=== PATIENT | female | born 1965 | race African-American/Black ===

== ENCOUNTER 2020-10-09 15:48 | Outpatient (REF) | payer OTHER, SELFPAY ==
--- NOTE | 2020-10-09 15:54 | XR_ITS ---
EXAMINATION: XR FOREARM, LEFT CLINICAL INFORMATION: Pain in left forearm COMPARISON: None TECHNIQUE: AP and lateral views of the left forearm were obtained. FINDINGS: No fracture or cortical disruption. Appropriate alignment of the wrist and elbow. There may be mild distal soft tissue swelling. No radiopaque foreign body. XR/XR forearm LT 2V IMPRESSION: Mild distal soft tissue swelling. No osseous abnormality.
== END 2020-10-09 15:49 | disposition home or self-care (01) ==
LOC: HO.XRAY 15:48
PROVIDERS: PCP Hospitalist; Visit Provider Hospitalist
DX: M79.632 Pain in left forearm (principal)
CPT/HCPCS: 73090

== ENCOUNTER → 2020-11-10 10:57 | Outpatient (BNVA) | payer OTHER, SELFPAY | PROVIDERS: PCP Hospitalist; Visit Provider Advanced Practice Midwife | DX: Z76.89 Persons encountering health services in other specified circumstances (principal) ==

== ENCOUNTER 2020-11-18 09:12 | Outpatient (REF) | payer OTHER, SELFPAY ==
--- NOTE | 2020-11-18 09:16 | MM_ITS ---
EXAMINATION: BONE DENSITOMETRY CLINICAL INDICATION: Asymptomatic postprocedural ovarian failure. COMPARISON: None (current study represents initial baseline exam). TECHNIQUE: Using a [employer] DXA System (software version: 13.1) manufactured by [employer], dual-energy x-ray absorptiometry was performed of the lumbar spine and left hip. The images are of good technical quality. Summary results are attached. FINDINGS: AP SPINE L1-L4: BMD 1.086 g/cm2, Z-score -1.2, T-score -0.8, normal. LEFT FEMUR, NECK: BMD 0.981 g/cm2, Z-score -0.7, T-score -0.4, normal. LEFT FEMUR, TOTAL: BMD 1.248 g/cm2, Z-score 1.2, T-score 1.9, normal. IDENTIFIED RISK FACTORS: Low calcium intake, history of fracture (adult). Early menopause, secondary osteoporosis, bilateral oophorectomy. HISTORY OF FRACTURE: Forearm. MEDICATIONS: None listed. MM/XR DEXA axial skeleton IMPRESSION: 1. DIAGNOSIS: Normal bone density based on the lowest T-score value of -0.8 in the lumbar spine applying World Health Organization criteria. 2. 10-YEAR FRACTURE RISK PREDICTION, FRAX: Major osteoporotic fracture (clinical spine, forearm, hip or shoulder) 4.4%. Hip fracture 0.1%. 3. Treatment Recommendations: NOF guidelines recommend consideration for treatment in postmenopausal women and men age 50 and older presenting with the following: -A hip or vertebral (clinical or morphometric) fracture. -T-score less than or equal to -2.5 at the femoral neck or spine after appropriate evaluation to exclude secondary causes. -Low bone mass at the hip or spine and a 10-year fracture probability by FRAX of greater than or equal to 3% for hip fracture or greater than or equal to 20% for major osteoporotic fracture based on the [place] adapted WHO algorithm. 4. Other Recommendations: All treatment decisions require clinical judgment and consideration of individual patient factors, including patient preferences, comorbidities, previous drug use, risk factors not captured in the FRAX model (e.g. frailty, falls, vitamin D deficiency, increased bone turnover, interval significant decline in bone density) and possible under or overestimation of fracture risk by FRAX. FUTURE SCAN RECOMMENDATION: People with diagnosed cases of osteoporosis or at high risk for fracture should have regular bone mineral density tests. For patients eligible for Medicare, routine testing is allowed once every 2 years. The testing frequency can be increased to one year for patients who have rapidly progressing disease, those who are receiving or discontinuing medical therapy to restore bone mass, or have additional risk factors.
== END 2020-11-18 09:13 | disposition home or self-care (01) ==
LOC: HO.MAMMO 09:12
PROVIDERS: Visit Provider Advanced Practice Midwife
DX: E89.40 Asymptomatic postprocedural ovarian failure (principal)
CPT/HCPCS: 77080

== ENCOUNTER 2020-11-18 10:10 | Outpatient (REF) | payer OTHER, SELFPAY | END 2020-11-18 10:11 | disposition home or self-care (01) | LOC: HO.LAB 10:10 | PROVIDERS: Visit Provider Internal Medicine | DX: Z20.828 Contact with and (suspected) exposure to other viral communicable diseases (principal) | CPT/HCPCS: C9803; U0003 ==

== ENCOUNTER 2020-12-23 10:21 | Outpatient (REF) | payer OTHER, SELFPAY | END 2020-12-23 10:22 | disposition home or self-care (01) | LOC: HO.LAB 10:21 | PROVIDERS: Visit Provider Internal Medicine | DX: Z20.822 Contact with and (suspected) exposure to COVID-19 (principal) | CPT/HCPCS: 36415; C9803; U0003 ==

== ENCOUNTER 2021-01-19 11:49 | Outpatient (REF) | payer OTHER, SELFPAY | END 2021-01-19 11:50 | disposition home or self-care (01) | LOC: HO.LAB 11:49 | PROVIDERS: Visit Provider Internal Medicine | DX: Z20.822 Contact with and (suspected) exposure to COVID-19 (principal) | CPT/HCPCS: 36415; C9803; U0003; U0005 ==

== ENCOUNTER 2021-02-23 11:11 | Outpatient (REF) | payer OTHER, SELFPAY | END 2021-02-23 11:12 | disposition home or self-care (01) | LOC: HO.LAB 11:11 | PROVIDERS: Visit Provider Internal Medicine | DX: Z20.822 Contact with and (suspected) exposure to COVID-19 (principal) | CPT/HCPCS: 36415; C9803; U0003; U0005 ==

== ENCOUNTER → 2021-06-03 09:14 | Outpatient (BNVA) | payer OTHER, SELFPAY | PROVIDERS: PCP Hospitalist; Visit Provider Surgery | DX: L98.9 Disorder of the skin and subcutaneous tissue, unspecified (principal) | CPT/HCPCS: 99202 ==

== ENCOUNTER 2021-06-09 13:40 | Outpatient (REF) | payer OTHER, SELFPAY ==
[2021-06-09 13:55] LABS: Glucose Urine UA NEG (NEG); Leukocyte Esterase Urine NEG (NEG); Nitrite Urine NEG (NEG); Urine Blood NEG (NEG); Urine Ketones NEG (NEG); Urine Protein NEG (NEG-TRACE)
[2021-06-09 14:01] LABS: Appearance Urine CLEAR; Color Urine YELLOW
== END 2021-06-09 13:41 | disposition home or self-care (01) ==
LOC: HO.LNP 13:40
PROVIDERS: Visit Provider Family Medicine
DX: Z00.00 Encounter for general adult medical examination without abnormal findings (principal); R30.0 Dysuria
CPT/HCPCS: 81003; 87086

== ENCOUNTER 2021-06-25 13:58 | Outpatient (REF) | payer OTHER, SELFPAY ==
[2021-06-25 14:00] VITALS: BP 144/85; PULSE 84; RESP 16; TEMP 36.4; O2SAT 98; BMI 34.5
--- NOTE | 2021-06-25 14:25 | P.OP_ITS ---
Operative Note Operative Note Date of Service: 06/25/21 Narrative: Preop diagnosis: Skin lesion, left groin Postop diagnosis: Skin lesion left groin Procedure: Excision of skin lesion left groin under local anesthesia Surgeon: Medardo Trujillo The patient is a 56-year-old female with note of a well-defined, pigmented, slightly elevated skin lesion on the left groin measuring about 1.2 cm in widest diameter. She understood the technique of excision under local anesthesia and was aware of the risks, benefits, and alternatives She was brought to the minor procedure room and placed supine. The area of the skin lesion on the left groin at the lower abdomen was prepped and draped in the usual sterile fashion. Lidocaine 1% was used for local anesthesia. An elliptical incision was made in the skin surrounding this lesion using blade 15 with attention towards making sure there was note of normal appearing skin for margins. This incision was carried down through the full-thickness of the skin and part of subcutaneous layer to excise the entire lesion. This was sent as kerri culp. I closed the incision with multiple nylon 3-0 interrupted sutures. Dressings were applied She tolerated procedure well. There were no complication noted. She was given wound care instructions and will be seen in the office for follow-up for removal sutures.
--- NOTE | 2021-06-25 14:27 | PM.OP ---
Brief Operative Note Date of Service: 06/25/21 Pre-op diagnosis: Skin lesion left groin Post-op diagnosis: same Procedure: Excision of skin lesion left groin Surgeon: Medardo Trujillo MD Was an Drug Abuse Resistance Education Officer used for this Procedure?: No Estimated blood loss (mL): 1 Pathology: other (Skin lesion) Condition: stable Disposition: other (Home)
== END 2021-06-25 13:59 | disposition home or self-care (01) ==
LOC: HO.MS 13:58
PROVIDERS: Visit Provider Surgery
PROC: (CPT 11402; principal; 2021-06-25 14:00)
DX: L82.1 Other seborrheic keratosis (principal)
CPT/HCPCS: 11402; 88305

== ENCOUNTER → 2021-07-08 09:50 | Outpatient (BNVA) | payer OTHER, SELFPAY | PROVIDERS: PCP Hospitalist; Visit Provider Surgery | DX: Z48.3 Aftercare following surgery for neoplasm (principal); Z86.018 Personal history of other benign neoplasm | CPT/HCPCS: 99212 ==

== ENCOUNTER → 2021-08-19 10:39 | Outpatient (BNVA) | payer OTHER, SELFPAY | PROVIDERS: PCP Hospitalist; Visit Provider Physician Assistant | DX: E66.9 Obesity, unspecified (principal); Z68.33 Body mass index [BMI] 33.0-33.9, adult | CPT/HCPCS: 99202 ==

== ENCOUNTER 2021-10-26 09:01 | Outpatient (REF) | payer OTHER, SELFPAY ==
--- NOTE | ~2021-10-26 | MM_ITS ---
EXAMINATION: MM SCREENING DIGITAL BREAST TOMOSYNTHESIS, BILATERAL CLINICAL INFORMATION: Screening. Asymptomatic. The lifetime risk of breast cancer based on the Tyrer-Cuzick Model is 7%. COMPARISON: Mammography: 08/12/2020, outside exams 12/27/2008 and 12/19/2006 ([facility]) TECHNIQUE: Digital breast tomosynthesis is performed in both the craniocaudal and mediolateral oblique views along with computer-aided detection (CAD). Synthesized 2D images are generated from the tomosynthesis. FINDINGS: There are scattered areas of fibroglandular density (ACR BI-RADS breast composition Category b). Small smooth nodule lower inner left breast is stable from prior study. Neither breast shows significant mass or architectural abnormality or abnormal calcifications. The bilateral axilla and are unremarkable. No significant changes. MM/MM tomosynthesis screening BI IMPRESSION: No significant changes from prior exam. ASSESSMENT: BI-RADS 2: Benign RECOMMENDATION: Routine annual mammography screening. This patient's information was entered into a reminder system with a target due date for their next mammogram.
== END 2021-10-26 09:02 | disposition home or self-care (01) ==
LOC: HO.MAMMO 09:01
PROVIDERS: PCP Hospitalist; Visit Provider Hospitalist
DX: Z12.31 Encounter for screening mammogram for malignant neoplasm of breast (principal)
CPT/HCPCS: 77063; 77067

== ENCOUNTER → 2021-11-12 10:29 | Outpatient (BNVA) | payer OTHER, SELFPAY | PROVIDERS: Visit Provider Advanced Practice Midwife | DX: Z01.419 Encounter for gynecological examination (general) (routine) without abnormal findings (principal); R82.90 Unspecified abnormal findings in urine; E66.9 Obesity, unspecified | CPT/HCPCS: 81003 ==

== ENCOUNTER 2022-11-17 10:32 | Outpatient (REF) | payer OTHER, SELFPAY ==
[2022-11-18 12:17] LABS: BV Int Neg Control Negative (Negative); BV Int Pos Control Positive (Positive)
== END 2022-11-17 10:33 | disposition home or self-care (01) ==
LOC: HO.LNP 10:32
PROVIDERS: PCP Hospitalist; Visit Provider Advanced Practice Midwife
DX: N89.8 Other specified noninflammatory disorders of vagina (principal)
CPT/HCPCS: 87480; 87510; 87660

== ENCOUNTER → 2024-12-25 10:58 | Outpatient (RCR) | payer OTHER, SELFPAY | END | disposition home or self-care (01) | LOC: HO.OT 10-31 09:48 | PROVIDERS: Visit Provider Hospitalist | DX: M79.632 Pain in left forearm (principal) | CPT/HCPCS: 29125; 97014; 97033; 97110; 97140; 97165; 97760 ==